=== PATIENT | female | born 1985 | race Caucasian/White ===

== ENCOUNTER 2019-08-19 22:12 | Emergency (ER) | payer MEDICAID ==
[~2019-08-19] VITALS: Ht 167.6 cm; Wt 96.0 kg
[~2019-08-19 22:12] MED LIST: ESCI10TA PO; FENO134C PO; METF-414 PO; NAPR-1176 PO
[2019-08-19] MEDS ORDERED: HYDROCODONE/ACETAMINOPHEN 5/325MG TABLET PO STA (23:04)
[2019-08-19 23:19] LABS: CLARITY URINE CLEAR (CLEAR); COLOR URINE YELLOW (YELLOW); KETONES URINE NEGATIVE (NEGATIVE); LEUKOCYTE ESTERASE URINE NEGATIVE (NEGATIVE); NITRITE URINE NEGATIVE (NEGATIVE); OCCULT BLOOD URINE NEGATIVE (NEGATIVE); PH URINE 6.5 (4.5-8.0); PROTEIN URINE NEGATIVE (NEGATIVE); SPECIFIC GRAVITY URINE 1.006 (1.005-1.030); UROBILINOGEN URINE 0.2 E.U./dL (0.2-1.0)
[2019-08-20 01:30] VITALS: BP 145/74
== END 2019-08-20 01:52 | disposition home or self-care (01) ==
LOC: ER 22:16 → MERGE 22:16 → ER 08-20 01:52
DX: R30.0 Dysuria (principal); M54.5 Low back pain; J45.909 Unspecified asthma, uncomplicated; E78.00 Pure hypercholesterolemia, unspecified; I10 Essential (primary) hypertension; Z79.899 Other long term (current) drug therapy
CPT/HCPCS: 76700; 81003; 99284

== ENCOUNTER 2024-07-02 08:53 | Emergency (ER) | payer MEDICAID, OTHER ==
[~2024-07-02] VITALS: Ht 157.5 cm; Wt 100.0 kg
[~2024-07-02 08:53] MED LIST changes: +ACET-2708 MT; -FENO134C PO; +FENO134C21 PO; +MAG355OR21 MT; +ONDA4TAB50 MT
[2024-07-02 08:58] VITALS: O2SAT 100
[2024-07-02] MEDS ORDERED: METHOCARBAMOL 750MG TABLET PO SCH (12:00)
[2024-07-02] MEDS: METHOCARBAMOL 500MG TABLET PO SCH (12:16)
[2024-07-02] MEDS: IBUPROFEN 400MG TABLET PO ONE (12:16)
[2024-07-02] MEDS: ACETAMINOPHEN 325MG TABLET PO ONE (12:17)
[2024-07-02] MEDS ORDERED: TOPUD PO (14:12)
[2024-07-02] MEDS ORDERED: IBUP-2028 MT (14:12)
[2024-07-02] MEDS ORDERED: METH-653 MT (14:12)
[2024-07-02] MEDS ORDERED: LIDO700A15 TP (14:12)
[2024-07-02 14:33] VITALS: BP 144/97; PULSE 77; RESP 20; TEMP 36.72516; O2SAT 100
== END 2024-07-02 14:32 | disposition home or self-care (01) ==
LOC: ER 08:59
DX: S13.4XXA Sprain of ligaments of cervical spine, initial encounter (principal); E11.9 Type 2 diabetes mellitus without complications; I10 Essential (primary) hypertension; V49.40XA Driver injured in collision with unspecified motor vehicles in traffic accident, initial encounter; Y93.89 Activity, other specified; Y92.89 Other specified places as the place of occurrence of the external cause; Y99.8 Other external cause status
CPT/HCPCS: 70486; 71045; 73030; 73502; 99284